=== PATIENT | male | born 2000 | race Caucasian/White ===

== ENCOUNTER 2024-02-14 13:15 | Emergency (ER) | payer OTHER, SELFPAY ==
[2024-02-14 13:29] VITALS: BP 137/82; PULSE 99; RESP 20; TEMP 37.8; O2SAT 97; BMI 29.5
[2024-02-14] MEDS: IBUPROFEN 400 MG TABLET 800 MG PO (13:48)
[2024-02-14 14:23] LABS: Strep Grp A by PCR Rapid Positive (Negative)
--- NOTE | 2024-02-14 14:50 | ED_ITS ---
HPI - Fever <Christiano Granados PA-C - Last Filed: 02/14/24 15:06> General Chief Complaint: Fever Stated Complaint: fever, sore throat Time Seen by Provider: 02/14/24 14:47 Source: patient Mode of arrival: Family Vehicle History of Present Illness HPI Narrative: 23-year-old male presents to the ED with 2 days of sore throat, fever. Patient complains of pain with swallowing. Denies chest pain, shortness of breath, cou gh. Related Data Previous Rx's Medication Instructions Recorded penicillin V potassium 500 mg 500 mg PO BID 10 days #20 tabs 02/14/24 tablet Allergies Allergy/AdvReac Type Severity Reaction Status Date / Time No Known Drug Allergies Allergy Verified 02/14/24 13:35 Review of Systems <Christiano Granados PA-C - Last Filed: 02/14/24 15:06> Constitutional Constitutional: Reports chills, Denies fatigue, Reports fever(s), Denies frequent falls, Denies lethargy and Denies weakness Eyes Eyes: Denies change in vision, Denies eye discharge, Denies irritation and Denies loss of vision ENT Ears, Nose, Mouth, and Throat: Denies change in voice, Denies dizziness, Denies neck pain, Reports sore throat and Denies throat swelling Cardiovascular Cardiovascular: Denies chest pain, Denies irregular heart rhythm, Denies lightheadedness, Denies palpitations, Denies dyspnea, Denies dyspnea on exertion and Denies orthopnea Respiratory Respiratory: Denies cough, Denies dyspnea, Denies dyspnea on exertion and Denies wheezing Gastrointestinal Gastrointestinal: Denies abdominal pain, Denies change in bowel habits, Denies diarrhea, Denies nausea and Denies vomiting Musculoskeletal Musculoskeletal: Denies neck pain and Denies numbness Integumentary/Breasts Skin/Breast: Denies pruritus, Denies erythema, Denies rash and Denies wounds Neurologic Neurologic: Denies behavioral changes, Denies confusion, Denies dizziness, Denies frequent falls, Denies loss of vision, Denies numbness and Denies weakness Psychiatric Psychiatric: Denies anxiety, Denies behavioral changes, Denies confusion, Denies depression, Denies homicidal ideation and Denies suicidal ideation Endocrine Endocrine: Denies fatigue, Denies flushing and Denies palpitations Hematologic/Lymphatic Hematologic/Lymphatic: Denies easy bruising Allergic/Immunologic Allergic/Immunologic: Denies urticaria, Denies throat swelling and Denies wheezing Exam <Christiano Granados PA-C - Last Filed: 02/14/24 15:06> Narrative Exam Narrative: Const General:?cooperative, healthy appearing and comfortable [facility] Head:?normal to inspection Ears:?hearing grossly normal bilaterally Nose:?external nose normal Face and sinus:?normal facial exam and sinuses nontender Mouth:?oral mucosae normal Throat:?posterior oropharynx swollen, erythematous. Airway is patent. No exudates visualized on exam. Eyes General:?appearance normal, both eyes and all related structures Neck Neck:?normal visual inspection and no lymphadenopathy noted Resp Effort & Inspection:?normal respiratory effort Auscultation:?clear to auscultation bilaterally Cardio Rate:?regular rate Rhythm:?regular rhythm Neuro General:?patient alert, patient awake and patient oriented x3 Initial Vital Signs Initial Vital Signs: Vital Signs Temperature 100.1 F H 02/14/24 13:29 Pulse Rate 99 H 02/14/24 13:29 Respiratory Rate 20 02/14/24 13:29 Blood Pressure 137/82 02/14/24 13:29 Pulse Oximetry 97 02/14/24 13:29 Oxygen Delivery Method Room Air 02/14/24 13:29 <Tere Maravilla DO - Last Filed: 02/15/24 08:16> Initial Vital Signs Initial Vital Signs: Vital Signs Temperature 100.1 F H 02/14/24 13:29 Pulse Rate 99 H 02/14/24 13:29 Respiratory Rate 20 02/14/24 13:29 Blood Pressure 137/82 02/14/24 13:29 Pulse Oximetry 97 02/14/24 13:29 Oxygen Delivery Method Room Air 02/14/24 13:29 Course <Christiano Granados PA-C - Last Filed: 02/14/24 15:06> Orders Ordered: Discontinued Medications Dexamethasone (Dexamethasone 10 Mg/Ml Vial) 10 mg PO NOW ONE Stop: 02/14/24 14:55 Last Admin: 02/14/24 15:05 Dose: 10 mg Documented By: ISIS Ibuprofen (Ibuprofen 400 Mg Tablet) 800 mg PO NOW ONE Stop: 02/14/24 13:40 Last Admin: 02/14/24 13:48 Dose: 800 mg Documented By: SB Vital Signs Vital signs: Vital Signs - 8 hr 02/14/24 13:29 Temperature 100.1 F H Pulse Rate 99 H Respiratory Rate 20 Blood Pressure 137/82 Pulse Oximetry 97 Oxygen Delivery Method Room Air <Tere Maravilla DO - Last Filed: 02/15/24 08:16> Orders Ordered: Discontinued Medications Dexamethasone (Dexamethasone 10 Mg/Ml Vial) 10 mg PO NOW ONE Stop: 02/14/24 14:55 Last Admin: 02/14/24 15:05 Dose: 10 mg Documented By: ISIS Ibuprofen (Ibuprofen 400 Mg Tablet) 800 mg PO NOW ONE Stop: 02/14/24 13:40 Last Admin: 02/14/24 13:48 Dose: 800 mg Documented By: SB Vital Signs Vital signs: Vital Signs - 8 hr 02/14/24 13:29 Temperature 100.1 F H Pulse Rate 99 H Respiratory Rate 20 Blood Pressure 137/82 Pulse Oximetry 97 Oxygen Delivery Method Room Air MDM - Fever <Christiano Granados PA-C - Last Filed: 02/14/24 15:06> Lab Data Labs: Lab Results 02/14/24 Range/Units 13:47 Group A Strep (PCR) Positive H (Negative) MDM Narrative Medical decision making narrative: 23-year-old male presents to the ED with 2 days of sore throat, fever. Patient tested positive for strep pharyngitis. Prescribed penicillin. Patient given a dose of dexamethasone in the ED. recommend follow-up with PCP as soon as possible. ED return precautions discussed with patient. Patient verbalized understanding. Medical records reviewed: Yes <Tere Maravilla DO - Last Filed: 02/15/24 08:16> Lab Data Labs: Lab Results 02/14/24 Range/Units 13:47 Group A Strep (PCR) Positive H (Negative) Discharge Plan Departure Patient Disposition: Home Clinical Impression: Strep pharyngitis Instructions: DI for Strep Throat Activity Restrictions/Additional Instructions: You were evaluated in the ED today for a sore throat and fever. You were diagnosed with strep throat. You are being prescribed antibiotics for this. Please take those as prescribed. You have also been given a dose of dexamethasone in the ED to reduce the pain and swelling. Return to the ED if you have any worsening symptoms, throat swelling, trouble breathing. Please follow-up with your PCP as soon as possible. Prescriptions: New penicillin V potassium 500 mg tablet 500 mg PO BID 10 Days Qty: 20 0RF Stand Alone Forms: Patient Portal/API/Survey ED Sign-out <Tere Maravilla, - Last Filed: 02/15/24 08:16> Cosign ED Attending Cosignature Attestation: I was available for consultation.
[2024-02-14] MEDS: DEXAMETHASONE 10 MG/ML VIAL PO (15:05)
[2024-02-14 15:10] VITALS: BP 140/80; PULSE 93; RESP 16; TEMP 36.6; O2SAT 95
== END 2024-02-14 15:10 | disposition home or self-care (01) ==
PROVIDERS: Emergency Medicine; Emergency Provider Student in an Organized Health Care Education/Training Program
DX: J02.0 Streptococcal pharyngitis (principal)
CPT/HCPCS: 87651; 99283; J1100